=== PATIENT | male | born 1970 | race Caucasian/White ===

== ENCOUNTER 2017-02-18 08:45 | Day surgery (SDC) | payer BC, OTHER ==
[~2017-02-18 08:45] MED LIST: LIDOCAINE HCL 1% MPF SOL ONE; PROPOFOL 500 MG/50 ML EMU IV ONE
[2017-02-18 10:57] VITALS: RESP 18
[2017-02-18 11:01] VITALS: O2SAT 100
[2017-02-18 11:22] VITALS: BP 101/71; PULSE 64; TEMP 97.6
== END 2017-02-18 12:06 | disposition home or self-care (01) ==
LOC: SURG 08:45
PROVIDERS: ATTEND Surgery Plastic and Reconstructive Surgery
DX: R10.13 Epigastric pain (principal); R19.4 Change in bowel habit
CPT/HCPCS: 43235; 45378; J2001; J2704